=== PATIENT | female | born 1960 | race Caucasian/White ===

== ENCOUNTER 2020-05-27 12:59 | Emergency (ER) | payer OTHER ==
[~2020-05-27] VITALS: Ht 160 cm; Wt 82.6 kg
[~2020-05-27 12:59] MED LIST: ALBU-136; AMOX250C31 PO; CYCL-405 PO; DULERA; FAMO-90 PO; HYDR-5122 PO; LIP80 PO; NITROGYLCERIN SL
[2020-05-27 13:02] VITALS: BP 127/75
--- NOTE | 2020-05-27 13:02 | NUR ---
PT AMBULATED TO BED 11.
--- NOTE | 2020-05-27 13:07 | NUR ---
59/F presents to ED with c/o lower back pain radiating down left leg. Pt states "it feels like sciatic pain." Pt states she was lifting boxes when she felt a "kink" in her back. Patient states she went to urgent care yesterday and was given pain medication that helped only for 4 hours. Pt is ambulating with a cane d/t severe lower back pain. Pt reports 10/10 sharp pain shooting down left leg.
--- NOTE | 2020-05-27 13:13 | NUR ---
Patient being evaluated by ELIF Larsen at bedside.
[2020-05-27] MEDS ORDERED: CRUSHER, PILL MC ONE (13:24)
--- NOTE | 2020-05-27 13:28 | NUR ---
Pt taken to x-ray via w/c.
--- NOTE | 2020-05-27 13:47 | NUR ---
Pt brought back from XR.
[2020-05-27] MEDS: methocarbamoL 500 MG TAB PO SCH (13:48)
[2020-05-27] MEDS: KETOROLAC 60 MG/2 ML VIAL IM ONE (13:50)
--- NOTE | 2020-05-27 14:18 | NUR ---
Pt ambulated to the restroom with cane/steady gait for UA collection.
[2020-05-27] MEDS ORDERED: LID5T TP (14:22)
[2020-05-27] MEDS ORDERED: ACET-9527 PO (14:22)
[2020-05-27 14:47] VITALS: BP 127/75
--- NOTE | 2020-05-27 14:47 | NUR ---
Patient discharged with v/s stable. Written and verbal after care instructions given and explained. Patient alert, oriented and verbalized understanding of instructions. Ambulatory with steady gait. All questions addressed prior to discharge. ID band removed. Patient advised to follow up with PMD. Rx of Bruning 5mg-325mg PO TID PRN severe pain, and lidoderm 5% patch topical daily PRN moderate pain given. Patient educated on indication of medication including possible reaction and side effects. Opportunity to ask questions provided and answered.
== END 2020-05-27 14:47 | disposition home or self-care (01) ==
LOC: MED 12:59
DX: S39.012A Strain of muscle, fascia and tendon of lower back, initial encounter (principal); J45.909 Unspecified asthma, uncomplicated; Z79.899 Other long term (current) drug therapy; X50.0XXA Overexertion from strenuous movement or load, initial encounter; Y93.89 Activity, other specified; Y92.89 Other specified places as the place of occurrence of the external cause; Y99.8 Other external cause status
CPT/HCPCS: 72110; 81002; 96372; 99283; J1885

== ENCOUNTER 2021-05-18 05:45 | Emergency (ER) | payer OTHER ==
[~2021-05-18] VITALS: Ht 157.5 cm; Wt 81.6 kg
[~2021-05-18 05:45] MED LIST changes: +ACET-9527 PO; +ALBU-118; -ALBU-136; -CYCL-405 PO; +CYCL-711 PO; +LID5T TP
[2021-05-18 05:46] VITALS: BP 151/83
--- NOTE | 2021-05-18 05:54 | NUR ---
PT TAKEN TO BED 4
--- NOTE | 2021-05-18 06:10 | NUR ---
Assumed patient care, here for right sided headache and right shoulder pain. No vision changes, speech is clear, steady gait, no facial droop.
--- NOTE | 2021-05-18 06:18 | NUR ---
Dr. Salinas examining patient.
--- NOTE | 2021-05-18 06:25 | NUR ---
Patient noted to be hyperventilating, c/o dizziness. Connected to awake overnight monitor, Dr. Brad garsia.
[2021-05-18] MEDS: KETOROLAC 15 MG/ML VIAL IM ONE (06:42)
[2021-05-18] MEDS: LIDOCAINE 5% 1 EA PATCH TP STA (06:42)
[2021-05-18] MEDS: CYCLOBENZAPRINE 10 MG TAB PO ONE (06:52)
[2021-05-18] MEDS: ACETAMINOPHEN EXTRA STRENGTH 500 MG TAB PO ONE (06:52)
--- NOTE | 2021-05-18 07:15 | NUR ---
Pt report received from JOSE Velazquez . Transfer of care at this time.
--- NOTE | 2021-05-18 07:15 | NUR ---
hand-off to Tony GARCIA for continuity of care. All vital signs stable on hand-off.
--- NOTE | 2021-05-18 07:25 | NUR ---
FIRST CONTACT WITH PATIENT, PT RESTING AND BED C/O OF RIGHT SIDED BEHIND THE EAR HEADACHE, PT HAS BEEN MEDICATED PER ORDERS. SKIN IS PINK/WARM/DRY; AAOX4 WITH EVEN AND STEADY GAIT; LUNGS CLEAR BL; HR EVEN AND REGULAR; PATIENT STATES PAIN OF 8/10 AT THIS TIME; VSS; PATIENT POSITIONED FOR COMFORT; HOB ELEVATED; BEDRAILS UP X2; BED DOWN. ER MD MADE AWARE OF PT STATUS.
[2021-05-18] MEDS: diazePAM 5 MG TAB PO ONE (07:55)
[2021-05-18] MEDS: DEXAMETHASONE 4 MG/ML VIAL PO ONE (07:55)
[2021-05-18] MEDS ORDERED: EMLAC TP (08:46)
[2021-05-18] MEDS ORDERED: LID5T TP (08:46)
[2021-05-18] MEDS ORDERED: NAPR-54 PO (08:46)
[2021-05-18] MEDS ORDERED: DIAZ5TAB8 PO (08:46)
--- NOTE | 2021-05-18 10:35 | NUR ---
PT ROAD TESTED, PT AMBULATES WITH STEADY GAIT DR LORA MADE AWARE PT IS READY FOR DISCHARGE.
[2021-05-18 10:42] VITALS: BP 119/57
--- NOTE | 2021-05-18 10:42 | NUR ---
Patient discharged with v/s stable. Written and verbal after care instructions given and explained. Patient alert, oriented and verbalized understanding of instructions. Ambulatory with steady gait. All questions addressed prior to discharge. ID band removed. Patient advised to follow up with PMD. Rx of DIAZEPAM,LIDOCAINE CREAM, LIDOCREAM PATCH, NAPROXEN given. Patient educated on indication of medication including possible reaction and side effects. Opportunity to ask questions provided and answered.
== END 2021-05-18 10:42 | disposition home or self-care (01) ==
LOC: MED 05:45
DX: R51.9 Headache, unspecified (principal); R03.0 Elevated blood-pressure reading, without diagnosis of hypertension; M54.2 Cervicalgia; J45.909 Unspecified asthma, uncomplicated; Z79.899 Other long term (current) drug therapy
CPT/HCPCS: 96372; 99285; J1100; J1885

== ENCOUNTER 2022-07-04 09:24 | Emergency (ER) | payer OTHER ==
[~2022-07-04] VITALS: Ht 157.5 cm; Wt 82.6 kg
[~2022-07-04 09:24] MED LIST changes: +DIAZ5TAB8 PO; +EMLAC TP; +NAPR-54 PO
[2022-07-04 09:29] VITALS: BP 146/68
--- NOTE | 2022-07-04 09:43 | NUR ---
CONCUR W/ PSYCHOLOGICAL OPERATIONS SPECIALIST NOTE. TO KARY Ramos. PREP FOR ERMD EVAL. COMFORT MEASURES AND SUPPORTIVE CARE INITIATED. ASSESMENT PER FLOWSHEET.
--- NOTE | 2022-07-04 09:58 | NUR ---
TO X-RAY VIA [facility]
[2022-07-04] MEDS: IBUPROFEN 600 MG TAB PO ONE (10:23)
--- NOTE | 2022-07-04 10:31 | NUR ---
MEDS AND SLING PROVIDED. FIRMLY INSTRUCTED PT TO NOT DRIVE W/ SLING IN PLACE. PT VERB UNDERSTANDING.
[2022-07-04] MEDS ORDERED: NAPR-1704 PO (10:38)
[2022-07-04] MEDS ORDERED: TRAM-748 PO (10:38)
== END 2022-07-04 10:32 | disposition home or self-care (01) ==
LOC: MED 09:24
DX: S43.401A Unspecified sprain of right shoulder joint, initial encounter (principal); J45.909 Unspecified asthma, uncomplicated; Z79.899 Other long term (current) drug therapy; Z79.1 Long term (current) use of non-steroidal anti-inflammatories (NSAID); Z79.891 Long term (current) use of opiate analgesic; Z79.2 Long term (current) use of antibiotics; Y93.73 Activity, racquet and hand sports; W18.39XA Other fall on same level, initial encounter; Y92.312 Tennis court as the place of occurrence of the external cause; Y99.8 Other external cause status
CPT/HCPCS: 73030; 99283

== ENCOUNTER 2023-04-01 13:55 | Emergency (ER) | payer OTHER ==
[~2023-04-01] VITALS: Ht 167.6 cm; Wt 81.6 kg
[~2023-04-01 13:55] MED LIST changes: +NAPR-1704 PO; +TRAM-748 PO
[2023-04-01 14:12] VITALS: BP 138/82; PULSE 89; RESP 18; TEMP 98; O2SAT 98
[2023-04-01] MEDS ORDERED: HYDROcodone/APAP 5/325 MG 1 TAB TAB PO ONE (14:40)
[2023-04-01] MEDS ORDERED: NAPR-54 PO (15:09)
[2023-04-01] MEDS ORDERED: CYCL-711 PO (15:09)
[2023-04-01] MEDS ORDERED: LID5T TP (15:09)
[2023-04-01 15:51] VITALS: BP 138/82; PULSE 89; RESP 18; TEMP 98; O2SAT 98
== END 2023-04-01 15:51 | disposition home or self-care (01) ==
LOC: MED 13:55
DX: S39.012A Strain of muscle, fascia and tendon of lower back, initial encounter (principal); J45.909 Unspecified asthma, uncomplicated; Z79.899 Other long term (current) drug therapy; X58.XXXA Exposure to other specified factors, initial encounter; Y93.89 Activity, other specified; Y92.89 Other specified places as the place of occurrence of the external cause; Y99.8 Other external cause status
CPT/HCPCS: 72110; 99283